=== PATIENT | male | born 1960 | race Caucasian/White ===

== ENCOUNTER → 2022-01-09 | Outpatient (CLI) | payer MEDICARE ==
[2021-12-26 09:17] LABS: CREATININE, SERUM 0.82 mg/dL (0.72-1.25)
[~2022-01-09] MED LIST: METOPROLOL TARTRATE 25 MG TAB ONE; METOPROLOL TARTRATE INJ 1 MG/ML VIAL ONE; NITROGLYCERIN 0.4 MG SUBL ONE
== END ==
LOC: CT 12-26 08:38
PROVIDERS: ATTEND Internal Medicine Cardiovascular Disease
DX: Z01.810 Encounter for preprocedural cardiovascular examination (principal); I25.10 Atherosclerotic heart disease of native coronary artery without angina pectoris; R94.39 Abnormal result of other cardiovascular function study
CPT/HCPCS: 36415; 75574; 82565; 84520

== ENCOUNTER → 2023-09-27 | Day surgery (SDC) | payer MEDICARE ==
[2023-09-19 12:45] LABS: BASOPHILS % 0.4 % (0.0-1.0); EOSINOPHILS # (AUTO) 0.3 (0.0-0.4); HEMATOCRIT 46.4 % (38.2-49.6); HEMOGLOBIN 15.5 g/dL (14.0-18.0); LYMPHOCYTES # (AUTO) 1.9 (1.0-3.2); LYMPHOCYTES % 22.6 % (18.0-39.1); MEAN CORPUSCULAR HEMOGLOBIN 30.3 pg (28-32); MEAN CORPUSCULAR HGB CONC 33.4 g/dL (31-35); MEAN CORPUSCULAR VOLUME 90.6 fL (81-99); MONOCYTES # (AUTO) 0.6 (0.2-0.8); MONOCYTES % 7.3 % (4.4-11.3); NEUTROPHILS # (AUTO) 5.6 (2.1-6.9); NEUTROPHILS % 65.6 % (38.7-80.0); PLATELET COUNT 155 x10e3/uL (140-360); RED BLOOD COUNT 5.12 x10e6/uL (4.3-5.7); RED CELL DISTRIBUTION WIDTH 13.2 % (11.7-14.4); WHITE BLOOD COUNT 8.49 x10e3/uL (4.8-10.8)
[2023-09-19 13:12] LABS: ANION GAP 15.3 mmol/L (8-16); CALCIUM 9.9 mg/dL (8.4-10.2); CREATININE, SERUM 0.77 mg/dL (0.72-1.25); POTASSIUM 4.3 mmol/L (3.5-5.1)
[~2023-09-27] MED LIST changes: +ASPIRIN81 MG PO; +AUGMENTIN 500-1 EACH PO; +COREG12.5 MG PO; +DEXAMETHASONE SOD PHOS INJ 4 MG/ML SDV ONE; +EPHEDRINE SULFATE INJ 50 MG/ML VIAL ONE; +IOPAMIDOL 610MG/1ML 300 MG/ML VIAL IV ONE; +JARDIANCE10 MG PO; +LEVEMIR100 UNIT/1 SQ; +LIDOCAINE HCL 2% LOCAL INJ 5 ML SDV VIAL INJ ONE; +LOSARTAN POTASS25 MG PO; +METFORMIN HCL1000 MG PO; -METOPROLOL TARTRATE 25 MG TAB ONE; -METOPROLOL TARTRATE INJ 1 MG/ML VIAL ONE; +MOUNJARO10 MG/0.5 SQ; +MOUNJARO7.5 MG/0.5 SQ; -NITROGLYCERIN 0.4 MG SUBL ONE; +ONDANSETRON HCL INJ 2MG/ML 2ML 2 MG/ML VIAL ONE; +PANTOPRAZOLE SO40 MG PO; +PHENYLEPHRINE HCL 1% 10 MG/ML VIAL ONE; +PRAVASTATIN SOD10 MG PO; +PROPOFOL IV EMULSION 10 MG/ML 20 ML VIAL ONE; +SEVOFLURANE INHAL SOLN 250 ML PEN BTL ONE; +TRIAMTERENE-HC1 EAC2 PO
[2023-09-27] MEDS: LACTATED RINGER'S 1,000 ML ONE (06:35)
[2023-09-27] MEDS: CEFTRIAXONE 1 GM VIAL ONE (06:36)
[2023-09-27 08:05] VITALS: BP 149/86; PULSE 87; RESP 15; O2SAT 98
== END | disposition home or self-care (01) ==
LOC: OR 05:54
PROVIDERS: ATTEND Urology
DX: N20.0 Calculus of kidney (principal); N13.30 Unspecified hydronephrosis; N28.1 Cyst of kidney, acquired; N40.1 Benign prostatic hyperplasia with lower urinary tract symptoms; R39.14 Feeling of incomplete bladder emptying; R35.1 Nocturia; N39.0 Urinary tract infection, site not specified; G47.33 Obstructive sleep apnea (adult) (pediatric); I44.0 Atrioventricular block, first degree; E78.5 Hyperlipidemia, unspecified; I10 Essential (primary) hypertension; I25.10 Atherosclerotic heart disease of native coronary artery without angina pectoris; E66.01 Morbid (severe) obesity due to excess calories; G89.29 Other chronic pain; E11.9 Type 2 diabetes mellitus without complications; D34 Benign neoplasm of thyroid gland; Z01.810 Encounter for preprocedural cardiovascular examination; Z01.812 Encounter for preprocedural laboratory examination; Z01.818 Encounter for other preprocedural examination; Z79.82 Long term (current) use of aspirin; Z79.84 Long term (current) use of oral hypoglycemic drugs; Z79.4 Long term (current) use of insulin; Z79.85 Long-term (current) use of injectable non-insulin antidiabetic drugs; Z79.899 Other long term (current) drug therapy; Z68.31 Body mass index [BMI] 31.0-31.9, adult; Z95.5 Presence of coronary angioplasty implant and graft; Z80.42 Family history of malignant neoplasm of prostate
CPT/HCPCS: 36415 ×2; 50590; 71046; 80048; 82948; 85025; 93005; J0696; J1100; J2001; J2371; J2405; J2704; J7121

== ENCOUNTER 2023-10-03 16:00 | Inpatient (IN) | payer MEDICARE ==
[~2023-10-03] VITALS: Ht 180.3 cm; Wt 106.1 kg
[~2023-10-03 16:00] MED LIST changes: -DEXAMETHASONE SOD PHOS INJ 4 MG/ML SDV ONE; -EPHEDRINE SULFATE INJ 50 MG/ML VIAL ONE; -IOPAMIDOL 610MG/1ML 300 MG/ML VIAL IV ONE; -LIDOCAINE HCL 2% LOCAL INJ 5 ML SDV VIAL INJ ONE; -ONDANSETRON HCL INJ 2MG/ML 2ML 2 MG/ML VIAL ONE; -PHENYLEPHRINE HCL 1% 10 MG/ML VIAL ONE; -PROPOFOL IV EMULSION 10 MG/ML 20 ML VIAL ONE; -SEVOFLURANE INHAL SOLN 250 ML PEN BTL ONE
[2023-10-03 17:10] VITALS: PULSE 69; RESP 18; O2SAT 96
[2023-10-03] MEDS ORDERED: DEXTROSE 50% SYRINGE 50 ML IV PRN (17:15)
[2023-10-03] MEDS ORDERED: ONDANSETRON HCL INJ 2MG/ML 2ML 2 MG/ML VIAL IV PRN (17:15)
[2023-10-03] MEDS ORDERED: Morphine 2mg Syringe 2 MG/ML SYR IV PRN (17:15)
[2023-10-03 18:04] LABS: BASOPHILS # (AUTO) 0.1 (0.0-0.1); BASOPHILS % 0.5 % (0.0-1.0); EOSINOPHILS # (AUTO) 0.3 (0.0-0.4); EOSINOPHILS % 2.2 % (0.0-6.0); HEMATOCRIT 49.9 % (38.2-49.6); HEMOGLOBIN 16.6 g/dL (14.0-18.0); LYMPHOCYTES # (AUTO) 1.9 (1.0-3.2); LYMPHOCYTES % 16.9 % (18.0-39.1); MEAN CORPUSCULAR HEMOGLOBIN 30.7 pg (28-32); MEAN CORPUSCULAR HGB CONC 33.3 g/dL (31-35); MEAN CORPUSCULAR VOLUME 92.2 fL (81-99); MONOCYTES # (AUTO) 0.9 (0.2-0.8); MONOCYTES % 8.1 % (4.4-11.3); NEUTROPHILS # (AUTO) 8.1 (2.1-6.9); PLATELET COUNT 220 x10e3/uL (140-360); RED BLOOD COUNT 5.41 x10e6/uL (4.3-5.7); RED CELL DISTRIBUTION WIDTH 13.3 % (11.7-14.4); WHITE BLOOD COUNT 11.23 x10e3/uL (4.8-10.8)
[2023-10-03 18:12] LABS: ANION GAP 17.9 mmol/L (8-16); BILIRUBIN,TOTAL 0.6 mg/dL (0.2-1.2); CALCIUM 9.5 mg/dL (8.4-10.2); CREATININE, SERUM 0.92 mg/dL (0.72-1.25); POTASSIUM 3.9 mmol/L (3.5-5.1); TOTAL PROTEIN 7.9 g/dL (6.5-8.1)
[2023-10-03] MEDS: SODIUM CHLORIDE 0.9% 1000ML 1,000 ML IV STA (18:14)
[2023-10-03] MEDS: SODIUM CHLORIDE 0.9% 1000ML 1,000 ML IV SCH (19:52)
[2023-10-03] MEDS: Vancomycin IV 1 GM in SODIUM CHLORIDE 0.9% 250ML 250 ML IV SCH (19:52)
[2023-10-03] MEDS: INSULIN LISPRO 100 UNIT/1 ML 3ML VIAL SQ SCH (21:00)
[2023-10-03 21:52] VITALS: PULSE 91; RESP 16; TEMP 98.2
[2023-10-03 22:50] VITALS: BP 146/85; PULSE 69; RESP 18; TEMP 97.4; O2SAT 96
[2023-10-04] VITALS (9 sets, daily range): BP systolic 128–154; BP diastolic 84–99; PULSE 60–95; RESP 18–22; TEMP 97–97.8; O2SAT 96–99
[2023-10-04 05:57] LABS: BASOPHILS % 0.3 % (0.0-1.0); EOSINOPHILS # (AUTO) 0.2 (0.0-0.4); EOSINOPHILS % 2.2 % (0.0-6.0); HEMATOCRIT 45.2 % (38.2-49.6); HEMOGLOBIN 14.8 g/dL (14.0-18.0); LYMPHOCYTES # (AUTO) 1.7 (1.0-3.2); LYMPHOCYTES % 18.7 % (18.0-39.1); MEAN CORPUSCULAR HEMOGLOBIN 30.5 pg (28-32); MEAN CORPUSCULAR HGB CONC 32.7 g/dL (31-35); MONOCYTES # (AUTO) 0.8 (0.2-0.8); MONOCYTES % 8.6 % (4.4-11.3); NEUTROPHILS # (AUTO) 6.4 (2.1-6.9); NEUTROPHILS % 69.9 % (38.7-80.0); PLATELET COUNT 147 x10e3/uL (140-360); RED BLOOD COUNT 4.86 x10e6/uL (4.3-5.7); RED CELL DISTRIBUTION WIDTH 13.2 % (11.7-14.4); WHITE BLOOD COUNT 9.14 x10e3/uL (4.8-10.8)
[2023-10-04 06:29] LABS: ALBUMIN 3.2 g/dL (3.5-5.0); ALBUMIN/GLOBULIN RATIO 0.9 (0.8-2.0); ANION GAP 12.6 mmol/L (8-16); BILIRUBIN,TOTAL 0.4 mg/dL (0.2-1.2); CALCIUM 9.2 mg/dL (8.4-10.2); CREATININE, SERUM 0.83 mg/dL (0.72-1.25); POTASSIUM 3.6 mmol/L (3.5-5.1); TOTAL PROTEIN 6.6 g/dL (6.5-8.1)
[2023-10-04] MEDS ORDERED: [UNRECOGNIZED DRUG - OTHER] PO (11:32)
[2023-10-04] MEDS ORDERED: ALBUTEROL/IPRATROPIUM 3 ML NEB NEB PRN (12:15)
[2023-10-04] MEDS ORDERED: DOCUSATE SODIUM 100 MG CAP PO PRN (12:15)
[2023-10-04] MEDS ORDERED: MELATONIN 3 MG TAB PO PRN (12:15)
[2023-10-04] MEDS: CARVEDILOL 12.5 MG TAB PO SCH (12:29)
[2023-10-04 12:33] LABS: CHOL/HDL RATIO 4.8 (3.9-4.7)
[2023-10-04] MEDS: ENOXAPARIN SOD INJ 40 MG/0.4 ML SYR SC SCH (17:27)
[2023-10-04] MEDS: INSULIN GLARGINE 100 UNITS/ML VIAL SQ SCH (21:00)
[2023-10-04] MEDS: PRAVASTATIN 20 MG TAB PO SCH (22:29)
[2023-10-05] VITALS (11 sets, daily range): BP systolic 130–153; BP diastolic 83–94; PULSE 63–86; RESP 16–20; TEMP 97–98.7; O2SAT 96–100
[2023-10-05] MEDS: PANTOPRAZOLE SOD 40 MG TABEC PO SCH (05:40)
[2023-10-05 05:54] LABS: BASOPHILS % 0.4 % (0.0-1.0); EOSINOPHILS # (AUTO) 0.2 (0.0-0.4); EOSINOPHILS % 2.7 % (0.0-6.0); HEMATOCRIT 44.9 % (38.2-49.6); HEMOGLOBIN 14.9 g/dL (14.0-18.0); LYMPHOCYTES # (AUTO) 1.5 (1.0-3.2); LYMPHOCYTES % 18.2 % (18.0-39.1); MEAN CORPUSCULAR HEMOGLOBIN 30.3 pg (28-32); MEAN CORPUSCULAR HGB CONC 33.2 g/dL (31-35); MEAN CORPUSCULAR VOLUME 91.4 fL (81-99); MONOCYTES # (AUTO) 0.8 (0.2-0.8); MONOCYTES % 9.1 % (4.4-11.3); NEUTROPHILS # (AUTO) 5.8 (2.1-6.9); NEUTROPHILS % 69.2 % (38.7-80.0); PLATELET COUNT 165 x10e3/uL (140-360); RED BLOOD COUNT 4.91 x10e6/uL (4.3-5.7); RED CELL DISTRIBUTION WIDTH 13.3 % (11.7-14.4); WHITE BLOOD COUNT 8.42 x10e3/uL (4.8-10.8)
[2023-10-05 07:05] LABS: ANION GAP 13.6 mmol/L (8-16); CALCIUM 8.9 mg/dL (8.4-10.2); CREATININE, SERUM 0.8 mg/dL (0.72-1.25); POTASSIUM 3.6 mmol/L (3.5-5.1)
[2023-10-05] MEDS: LOSARTAN POTASSIUM 100 MG TAB PO SCH (08:50)
[2023-10-05] MEDS ORDERED: IOPAMIDOL 370 MG/ML 100 ML INFUS..BTL INJ ONE (12:20)
[2023-10-05] MEDS ORDERED: SODIUM CHLORIDE 0.9% 100 ML ONE (12:20)
[2023-10-05] MEDS ORDERED: Vancomycin IV 1 GM VIAL ONE (16:53)
[2023-10-05] MEDS: ACETAMINOPHEN 325 MG TAB PO PRN (18:31)
[2023-10-06] VITALS (10 sets, daily range): BP systolic 140–170; BP diastolic 82–107; PULSE 56–81; RESP 18–20; TEMP 97.4–98; O2SAT 95–100
[2023-10-06 08:28] LABS: BASOPHILS % 0.4 % (0.0-1.0); EOSINOPHILS # (AUTO) 0.3 (0.0-0.4); EOSINOPHILS % 3.3 % (0.0-6.0); HEMATOCRIT 44.8 % (38.2-49.6); HEMOGLOBIN 14.9 g/dL (14.0-18.0); LYMPHOCYTES # (AUTO) 1.9 (1.0-3.2); LYMPHOCYTES % 23.5 % (18.0-39.1); MEAN CORPUSCULAR HEMOGLOBIN 30.7 pg (28-32); MEAN CORPUSCULAR HGB CONC 33.3 g/dL (31-35); MEAN CORPUSCULAR VOLUME 92.2 fL (81-99); MONOCYTES # (AUTO) 0.7 (0.2-0.8); MONOCYTES % 8.9 % (4.4-11.3); NEUTROPHILS # (AUTO) 5.1 (2.1-6.9); NEUTROPHILS % 63.8 % (38.7-80.0); PLATELET COUNT 168 x10e3/uL (140-360); RED BLOOD COUNT 4.86 x10e6/uL (4.3-5.7); RED CELL DISTRIBUTION WIDTH 13.3 % (11.7-14.4); WHITE BLOOD COUNT 7.95 x10e3/uL (4.8-10.8)
[2023-10-06] MEDS ORDERED: VALIUM5 MG PO (08:30)
[2023-10-06 08:46] LABS: ANION GAP 9.6 mmol/L (8-16); CALCIUM 9.4 mg/dL (8.4-10.2); CREATININE, SERUM 0.74 mg/dL (0.72-1.25); POTASSIUM 3.6 mmol/L (3.5-5.1)
[2023-10-07] VITALS (10 sets, daily range): BP systolic 136–168; BP diastolic 77–102; PULSE 62–82; RESP 18–20; TEMP 97.5–98.1; O2SAT 96–100
[2023-10-07] MEDS: METOPROLOL TARTRATE INJ 1 MG/ML VIAL IV PRN (05:29)
[2023-10-07] MEDS: MEROPENEM 1 GM in SODIUM CHLORIDE 0.9% 100 ML IV SCH (15:21)
[2023-10-08] VITALS (11 sets, daily range): BP systolic 122–178; BP diastolic 76–91; PULSE 63–87; RESP 18–20; TEMP 97.6–97.9; O2SAT 95–100
[2023-10-08 11:36] LABS: BASOPHILS % 0.3 % (0.0-1.0); EOSINOPHILS # (AUTO) 0.2 (0.0-0.4); EOSINOPHILS % 2.2 % (0.0-6.0); HEMATOCRIT 46.3 % (38.2-49.6); HEMOGLOBIN 15.2 g/dL (14.0-18.0); LYMPHOCYTES # (AUTO) 2.2 (1.0-3.2); LYMPHOCYTES % 21.6 % (18.0-39.1); MEAN CORPUSCULAR HEMOGLOBIN 30.2 pg (28-32); MEAN CORPUSCULAR HGB CONC 32.8 g/dL (31-35); MEAN CORPUSCULAR VOLUME 91.9 fL (81-99); MONOCYTES # (AUTO) 0.7 (0.2-0.8); MONOCYTES % 6.6 % (4.4-11.3); NEUTROPHILS # (AUTO) 7.1 (2.1-6.9); PLATELET COUNT 173 x10e3/uL (140-360); RED BLOOD COUNT 5.04 x10e6/uL (4.3-5.7); RED CELL DISTRIBUTION WIDTH 13.4 % (11.7-14.4); WHITE BLOOD COUNT 10.29 x10e3/uL (4.8-10.8)
[2023-10-08 11:51] LABS: ALBUMIN 3.4 g/dL (3.5-5.0); ALBUMIN/GLOBULIN RATIO 0.9 (0.8-2.0); ANION GAP 13.7 mmol/L (8-16); BILIRUBIN,TOTAL 0.4 mg/dL (0.2-1.2); CALCIUM 9.1 mg/dL (8.4-10.2); CREATININE, SERUM 0.72 mg/dL (0.72-1.25); POTASSIUM 3.7 mmol/L (3.5-5.1); TOTAL PROTEIN 7.2 g/dL (6.5-8.1)
[2023-10-08] MEDS: VERAPAMIL HCL 2.5 MG/ML 2 ML VIAL ONE (11:58)
[2023-10-08] MEDS: LIDOCAINE HCL 2% LOCAL 20 ML VIAL ONE ×2 (11:58→12:00)
[2023-10-08] MEDS: HEPARIN SOD (PORCINE) 1000 UNIT/ML 30ML ONE (11:58)
[2023-10-08] MEDS: SODIUM CHLORIDE 0.9% 1000ML 0 ML ONE (11:59)
[2023-10-08] MEDS: NITROGLYCERIN/D5W 200 MCG/ML 250 ML ONE (11:59)
[2023-10-08] MEDS: HEPARIN SOD/SOD CHLORIDE 2,000 ML ONE (11:59)
[2023-10-08] MEDS: IOPAMIDOL 370 MG/ML 100 ML INFUS..BTL INJ ONE (12:00)
[2023-10-08] MEDS: MIDAZOLAM HCL 2 MG/2 ML VIAL ONE (12:00)
[2023-10-08] MEDS: SODIUM CHLORIDE 0.9% 1000ML 1,000 ML ONE (12:00)
[2023-10-08] MEDS: FENTANYL CITRATE/PF 100MCG/2 ML INJ ONE (12:00)
[2023-10-08] MEDS: ASPIRIN 81 MG CHEW TAB PO SCH (14:02)
[2023-10-09] VITALS: BP 156/94; PULSE 72; RESP 18; TEMP 98; O2SAT 99
[2023-10-09 04:00] VITALS: BP 117/64; PULSE 77; RESP 18; TEMP 97.8; O2SAT 96
[2023-10-09] MEDS ORDERED: ASPIRIN CHEW81 MG PO (07:39)
[2023-10-09] MEDS ORDERED: TYLENOL325 MG PO (07:39)
[2023-10-09] MEDS ORDERED: COZAAR100 MG PO (07:39)
[2023-10-09] MEDS ORDERED: ULTRAM 50MG50 MG PO (07:39)
[2023-10-09 08:05] VITALS: BP 155/85; PULSE 65; RESP 18; TEMP 98.6; O2SAT 100
[2023-10-09 08:12] VITALS: BP 155/85; PULSE 65; RESP 18; TEMP 97.5; O2SAT 100
[2023-10-09 09:48] VITALS: PULSE 72; RESP 18; O2SAT 98
== END 2023-10-09 10:12 | disposition home health service (06) | DRG 264 ==
LOC: ER 16:07 → ERHOLD 17:16 → MED/SURG3 22:35
PROVIDERS: ADMIT Internal Medicine; ATTEND Internal Medicine
PROC: 0JBR0ZZ Excision of Left Foot Subcutaneous Tissue and Fascia, Open Approach (ICD-10-PCS; 2023-10-05)
PROC: 02HV33Z Insertion of Infusion Device into Superior Vena Cava, Percutaneous Approach (ICD-10-PCS; 2023-10-07)
PROC: B41D1ZZ Fluoroscopy of Aorta and Bilateral Lower Extremity Arteries using Low Osmolar Contrast (ICD-10-PCS; principal; 2023-10-08)
DX: E11.51 Type 2 diabetes mellitus with diabetic peripheral angiopathy without gangrene (principal); M86.172 Other acute osteomyelitis, left ankle and foot; Z16.12 Extended spectrum beta lactamase (ESBL) resistance; L97.528 Non-pressure chronic ulcer of other part of left foot with other specified severity; L03.116 Cellulitis of left lower limb; M00.872 Arthritis due to other bacteria, left ankle and foot; N13.30 Unspecified hydronephrosis; E11.42 Type 2 diabetes mellitus with diabetic polyneuropathy; E11.621 Type 2 diabetes mellitus with foot ulcer; I70.201 Unspecified atherosclerosis of native arteries of extremities, right leg; K80.20 Calculus of gallbladder without cholecystitis without obstruction; K76.9 Liver disease, unspecified; E11.69 Type 2 diabetes mellitus with other specified complication; I70.245 Atherosclerosis of native arteries of left leg with ulceration of other part of foot; I25.10 Atherosclerotic heart disease of native coronary artery without angina pectoris; I10 Essential (primary) hypertension; E78.5 Hyperlipidemia, unspecified; N20.0 Calculus of kidney; E66.9 Obesity, unspecified; Z68.32 Body mass index [BMI] 32.0-32.9, adult; B96.20 Unspecified Escherichia coli [E. coli] as the cause of diseases classified elsewhere; Z79.82 Long term (current) use of aspirin; Z79.4 Long term (current) use of insulin; Z79.85 Long-term (current) use of injectable non-insulin antidiabetic drugs; Z79.84 Long term (current) use of oral hypoglycemic drugs; Z95.5 Presence of coronary angioplasty implant and graft
CPT/HCPCS: 36247; 36415; 36569; 71045; 75625; 75635; 75716; 76705; 76937; 77002; 80048; 80053; 80061; 80202; 82948; 83036; 83735; 85025; 87040; 87071; 87186; 87205; 93925; 94660; 94799; 96372; 99152; 99153; 99252; 99284; C1760; C1769; C1887; C1894; J1644; J1650; J1815; J2001; J2185; J2250; J2543; J7030; J7050; Q9967